=== PATIENT | male | born 1940 | race Caucasian/White ===

== ENCOUNTER 2016-05-19 12:45 | Inpatient (IN) | payer MEDICARE, OTHER ==
[~2016-05-19] VITALS: Ht 175.3 cm; Wt 102.4 kg
[2016-05-19] VITALS (28 sets, daily range): BP systolic 84–149; BP diastolic 34–75
[~2016-05-19 12:45] MED LIST: ARTISOL OP; ASCO-22 PO; BIS10RS PR; DOCU-137 PO; INSUINJ IJ; LIDO5DIS21 TOP; MID10T GT; WARF2TAB55 PO
[2016-05-19] MEDS ORDERED: NOREPINEPHRINE BITARTRATE 250 ML IV ONE (13:15)
[2016-05-19] MEDS ORDERED: PIPERACILLIN-TAZOB 3.375GM 100 ML IV ONE (13:15)
[2016-05-19 13:18] LABS: Basophils # (auto) 0.1 uL; Basophils % (auto) 0.4 % (0.0-2.0); DEFINITIVE VIEW TRANSMISSION; Eosinophils # (auto) 0.3 uL; Eosinophils % (auto) 1.6 % (0.0-7.0); Hematocrit 28.5 % (41.0-53.0); Hemoglobin 9.2 g/dL (13.5-17.5); Lymphocytes # (auto) 2.4 uL; Lymphocytes % (auto) 12.9 % (10.0-50.0); Mean Corpuscular Hemoglobin 30.4 pg (28.0-32.0); Mean Corpuscular Hgb Conc. 32.4 g/dL (32.0-36.0); Mean Corpuscular Volume 93.9 fL (80.0-100.0); Mean Platelet Volume 7.4 fL (7.4-10.4); Monocytes # (auto) 2.9 uL; Monocytes % (auto) 16.1 % (0.0-12.0); Neutrophils # (auto) 12.6 uL; Platelet Count (auto) 595 10^3/uL (140-450); Red Cell Distribution Width 15.1 % (11.6-16.0); White Blood Cell 18.3 10^3/uL (4.4-10.8)
[2016-05-19] MEDS: NOREPINEPHRINE BITARTRATE 250 ML IV SCH (13:34)
[2016-05-19 13:35] LABS: Albumin 2.3 g/dL (3.4-5.0); BUN/Creatinine Ratio 13.2; Calcium 7.4 mg/dL (8.5-10.1); Potassium 5.2 mmol/L (3.5-5.1)
[2016-05-19 13:40] LABS: Bilirubin, Total 0.3 mg/dL (0.2-1.0); Total Protein 6.3 g/dL (6.4-8.2)
[2016-05-19 13:42] LABS: INR 1.07 (0.9-1.15)
[2016-05-19] MEDS: PROPOFOL 100 ML IV SCH (14:34)
[2016-05-19] MEDS ORDERED: PROPOFOL 10 MG/ML 20 ML IV ONE (14:45)
[2016-05-19 15:06] LABS: Urine Mucus FEW (None Seen); Urine RBC 6 /hpf (0 - 3); Urine Squamous Epithelial Cell FEW /hpf (<5)
[2016-05-19 15:07] LABS: Urine Color Yellow (Yellow)
[2016-05-19 15:08] LABS: Urine Bilirubin Negative (Negative); Urine Blood 50 /uL (Negative); Urine Glucose Normal (Normal); Urine Ketone Negative (Negative); Urine Nitrite Negative (Negative); Urine Urobilinogen Normal (Negative)
[2016-05-19] MEDS ORDERED: GABA300C8 PO (15:16)
[2016-05-19] MEDS ORDERED: AMIO200T33 PO (15:16)
[2016-05-19] MEDS ORDERED: NOR5T PO (15:16)
[2016-05-19] MEDS ORDERED: FURO40TA PO (15:16)
[2016-05-19] MEDS ORDERED: VANC125C2 PO (15:16)
[2016-05-19] MEDS ORDERED: TIOT17SP IN (15:16)
[2016-05-19] MEDS ORDERED: DIPH25CA6 PO (15:16)
[2016-05-19] MEDS ORDERED: ACET325T82 PO (15:16)
[2016-05-19] MEDS ORDERED: IPRATROPIUM BROM 0.5 MG/2.5ML INH SOL ONE (15:24)
[2016-05-19 16:09] LABS: B-Type Natriuretic Peptide 1428.55 pg/mL (0-100); Temperature: 22.9 C (20.0-25.0)
[2016-05-19] MEDS ORDERED: NITROGLYCERIN 0.4 MG SL TAB SL PRN (16:30)
[2016-05-19] MEDS ORDERED: MORPHINE SULF INJ 2 MG/ML SYRINGE 1ML IV PRN (16:30)
[2016-05-19] MEDS ORDERED: TPN PER PHARMACY 0 ML IV SCH (17:15)
[2016-05-19] MEDS ORDERED: DEXTROSE (50%) 50ML SYRG IV PRN (17:15)
[2016-05-19] MEDS: ACCU-CHEK COMFORT CURVE STRIP VI SCH ×2 (18:00→23:40)
[2016-05-19] MEDS: InsuLIN REG 1unit/0.01ml Soln (100units/ml) SC SCH ×2 (19:11→23:40)
[2016-05-19] MEDS ORDERED: CLINIMIX PER PHARMACY IV ONE ×5 (20:00)
[2016-05-20] VITALS (92 sets, daily range): BP systolic 75–168; BP diastolic 32–99
[2016-05-20] MEDS: InsuLIN REG 1unit/0.01ml Soln (100units/ml) SC SCH ×3 (06:00→18:00)
[2016-05-20] MEDS: ACCU-CHEK COMFORT CURVE STRIP VI SCH ×3 (06:00→18:15)
[2016-05-20] MEDS: PROPOFOL 100 ML IV SCH ×2 (07:00)
[2016-05-20 08:06] LABS: Albumin 2.1 g/dL (3.4-5.0); Bilirubin, Total 0.3 mg/dL (0.2-1.0); Magnesium 2.2 mg/dL (1.6-2.6); Phosphorus 3.3 mg/dL (2.5-4.90); Total Protein 5.6 g/dL (6.4-8.2)
[2016-05-20] MEDS ORDERED: EPOETIN ALFA 4,000 UNIT/ML VL SC ONE (12:15)
[2016-05-20] MEDS ORDERED: VANCOMYCIN PER PHARMACY 0 MG IV SCH (12:15)
[2016-05-20] MEDS: VANCOMYCIN 1GM/250ML D5W 250 ML IV SCH (13:51)
[2016-05-20] MEDS ORDERED: PIPERACILLIN-TAZOB 3.375GM 100 ML IV SCH (18:00)
[2016-05-20] MEDS: VANCOMYCIN HCL 125MG/5ML ORAL SOL PO SCH ×2 (18:00→22:00)
[2016-05-20] MEDS ORDERED: CLINIMIX PER PHARMACY IV NR ×7 (20:00)
[2016-05-20] MEDS ORDERED: KETOROLAC TROMETH 30 MG/ML 1ML VIAL IV ONE (20:15)
[2016-05-20 21:03] LABS: Basophils # (auto) 0 uL; Basophils % (auto) 0.1 % (0.0-2.0); DEFINITIVE VIEW TRANSMISSION; Eosinophils # (auto) 0.3 uL; Eosinophils % (auto) 1.8 % (0.0-7.0); Hematocrit 27.1 % (41.0-53.0); Hemoglobin 8.8 g/dL (13.5-17.5); Lymphocytes % (auto) 5.8 % (10.0-50.0); Mean Corpuscular Hemoglobin 29.4 pg (28.0-32.0); Mean Corpuscular Hgb Conc. 32.3 g/dL (32.0-36.0); Mean Corpuscular Volume 90.9 fL (80.0-100.0); Monocytes % (auto) 12.2 % (0.0-12.0); Neutrophils # (auto) 13.3 uL; Neutrophils % (auto) 80.1 % (37.0-80.0); Platelet Count (auto) 417 10^3/uL (140-450); Red Cell Distribution Width 14.3 % (11.6-16.0); White Blood Cell 16.7 10^3/uL (4.4-10.8)
[2016-05-20] MEDS: AMIODARONE HCL 200 MG TAB PO SCH (22:00)
[2016-05-20] MEDS: ENOXAPARIN SOD 60 MG/0.6 ML SYRINGE SC SCH (22:00)
[2016-05-20 22:03] LABS: B-Type Natriuretic Peptide 1349.22 pg/mL (0-100); Temperature: 22.9 C (20.0-25.0)
[2016-05-20] MEDS: IPRATROPIUM BROM 0.5 MG/2.5ML INH SOL NEB SCH (22:45)
[2016-05-21] VITALS (38 sets, daily range): BP systolic 92–139; BP diastolic 36–79
[2016-05-21] MEDS: NOREPINEPHRINE BITARTRATE 250 ML IV SCH (01:07)
[2016-05-21 04:09] LABS: Basophils # (auto) 0 uL; DEFINITIVE VIEW TRANSMISSION; Eosinophils # (auto) 0.3 uL; Eosinophils % (auto) 2.3 % (0.0-7.0); Hematocrit 24.5 % (41.0-53.0); Hemoglobin 8.1 g/dL (13.5-17.5); Lymphocytes # (auto) 1.2 uL; Mean Corpuscular Hemoglobin 30.9 pg (28.0-32.0); Mean Corpuscular Hgb Conc. 33.1 g/dL (32.0-36.0); Mean Corpuscular Volume 93.2 fL (80.0-100.0); Mean Platelet Volume 7.3 fL (7.4-10.4); Monocytes % (auto) 13.3 % (0.0-12.0); Neutrophils # (auto) 11.3 uL; Neutrophils % (auto) 76.4 % (37.0-80.0); Platelet Count (auto) 388 10^3/uL (140-450); Red Cell Distribution Width 14.5 % (11.6-16.0); White Blood Cell 14.8 10^3/uL (4.4-10.8)
[2016-05-21 04:37] LABS: Albumin 2.1 g/dL (3.4-5.0); BUN/Creatinine Ratio 15.9; Bilirubin, Total 0.4 mg/dL (0.2-1.0); Calcium 7.9 mg/dL (8.5-10.1); Phosphorus 3.1 mg/dL (2.5-4.90); Total Protein 5.7 g/dL (6.4-8.2)
[2016-05-21] MEDS: VANCOMYCIN HCL 125MG/5ML ORAL SOL PO SCH ×4 (06:00→22:08)
[2016-05-21] MEDS: InsuLIN REG 1unit/0.01ml Soln (100units/ml) SC SCH ×4 (06:00→17:45)
[2016-05-21] MEDS: ACCU-CHEK COMFORT CURVE STRIP VI SCH ×4 (06:00→17:19)
[2016-05-21] MEDS: IPRATROPIUM BROM 0.5 MG/2.5ML INH SOL NEB SCH ×3 (07:19→22:35)
[2016-05-21] MEDS: AMIODARONE HCL 200 MG TAB PO SCH ×2 (12:26→22:08)
[2016-05-21] MEDS: VANCOMYCIN 1GM/250ML D5W 250 ML IV SCH (12:49)
[2016-05-21] MEDS ORDERED: CLINIMIX PER PHARMACY IV NR ×7 (20:00)
[2016-05-21] MEDS: ENOXAPARIN SOD 60 MG/0.6 ML SYRINGE SC SCH (22:07)
[2016-05-22] MEDS: InsuLIN REG 1unit/0.01ml Soln (100units/ml) SC SCH ×4 (00:19→18:00)
[2016-05-22] MEDS: ACCU-CHEK COMFORT CURVE STRIP VI SCH ×4 (00:20→18:54)
[2016-05-22] MEDS: traMADol HCL 50 MG TAB PO PRN ×2 (00:37→06:31)
[2016-05-22 01:20] VITALS: BP 127/54
[2016-05-22 01:29] VITALS: BP 127/54
[2016-05-22] MEDS: IPRATROPIUM BROM 0.5 MG/2.5ML INH SOL NEB SCH ×3 (05:44→22:35)
[2016-05-22 06:00] VITALS: BP 124/48
[2016-05-22] MEDS: VANCOMYCIN HCL 125MG/5ML ORAL SOL PO SCH ×4 (06:18→22:29)
[2016-05-22 06:39] LABS: Calcium 7.2 mg/dL (8.5-10.1); Potassium 4.2 mmol/L (3.5-5.1)
[2016-05-22 06:42] LABS: Bilirubin, Total 0.5 mg/dL (0.2-1.0); Total Protein 5.8 g/dL (6.4-8.2)
[2016-05-22 09:00] VITALS: BP 107/41
[2016-05-22 09:39] LABS: Phosphorus 1.6 mg/dL (2.5-4.90)
[2016-05-22] MEDS: AMIODARONE HCL 200 MG TAB PO SCH ×2 (10:00→22:29)
[2016-05-22] MEDS ORDERED: SODIUM PHOSPH 40 MEQ (30MMOL) IN NS 250 ML IV ONE (11:00)
[2016-05-22 13:00] VITALS: BP 128/46
[2016-05-22] MEDS: VANCOMYCIN 1GM/250ML D5W 250 ML IV SCH (14:00)
[2016-05-22] MEDS ORDERED: diphenhdrAMINE HCL 25 MG CAP PO PRN (14:30)
[2016-05-22] MEDS ORDERED: CALAMINE TOPical LOTION180 ML TOP PRN (14:30)
[2016-05-22] MEDS ORDERED: FUROSEMIDE 40 MG/4 ML VIAL IV ONE (14:30)
[2016-05-22] MEDS ORDERED: CLINIMIX PER PHARMACY IV NR ×9 (20:00)
[2016-05-22 21:55] VITALS: BP 107/47
[2016-05-22] MEDS: ENOXAPARIN SOD 60 MG/0.6 ML SYRINGE SC SCH (22:29)
[2016-05-22] MEDS: ACETAMINOPHEN 325 MG TAB PO PRN (22:38)
[2016-05-23] MEDS: ACCU-CHEK COMFORT CURVE STRIP VI SCH ×4 (00:11→17:10)
[2016-05-23] MEDS: InsuLIN REG 1unit/0.01ml Soln (100units/ml) SC SCH ×5 (00:11→23:49)
[2016-05-23 05:06] VITALS: BP 110/55
[2016-05-23] MEDS: VANCOMYCIN HCL 125MG/5ML ORAL SOL PO SCH ×4 (05:57→21:58)
[2016-05-23] MEDS: IPRATROPIUM BROM 0.5 MG/2.5ML INH SOL NEB SCH ×3 (06:05→21:55)
[2016-05-23 09:00] VITALS: BP 91/26
[2016-05-23] MEDS: DOCUSATE SOD 100 MG CAP PO SCH ×2 (10:23→21:59)
[2016-05-23] MEDS: AMIODARONE HCL 200 MG TAB PO SCH ×2 (10:24→21:59)
[2016-05-23] MEDS: VANCOMYCIN 1GM/250ML D5W 250 ML IV SCH (12:30)
[2016-05-23 13:00] VITALS: BP 106/48
[2016-05-23 17:00] VITALS: BP 94/49
[2016-05-23] MEDS: traMADol HCL 50 MG TAB PO PRN (21:58)
[2016-05-23] MEDS: ENOXAPARIN SOD 60 MG/0.6 ML SYRINGE SC SCH (21:59)
[2016-05-23 22:00] VITALS: BP 113/48
[2016-05-24] MEDS: ACCU-CHEK COMFORT CURVE STRIP VI SCH ×5 (00:06→22:07)
[2016-05-24 05:00] VITALS: BP 97/50
[2016-05-24] MEDS: InsuLIN REG 1unit/0.01ml Soln (100units/ml) SC SCH ×4 (06:00→22:07)
[2016-05-24 06:14] LABS: Basophils # (auto) 0 uL; Basophils % (auto) 0.3 % (0.0-2.0); DEFINITIVE VIEW TRANSMISSION; Eosinophils # (auto) 0.4 uL; Eosinophils % (auto) 3.3 % (0.0-7.0); Hematocrit 22.7 % (41.0-53.0); Hemoglobin 7.6 g/dL (13.5-17.5); Lymphocytes # (auto) 0.9 uL; Lymphocytes % (auto) 8.2 % (10.0-50.0); Mean Corpuscular Hemoglobin 31.3 pg (28.0-32.0); Mean Corpuscular Hgb Conc. 33.3 g/dL (32.0-36.0); Mean Corpuscular Volume 93.8 fL (80.0-100.0); Mean Platelet Volume 7.9 fL (7.4-10.4); Monocytes # (auto) 1.9 uL; Monocytes % (auto) 16.9 % (0.0-12.0); Neutrophils # (auto) 7.9 uL; Neutrophils % (auto) 71.3 % (37.0-80.0); Platelet Count (auto) 251 10^3/uL (140-450); Red Cell Distribution Width 14.8 % (11.6-16.0); SUSPECT VIEW TRANSMISSION; White Blood Cell 11.1 10^3/uL (4.4-10.8)
[2016-05-24 06:59] LABS: Albumin 1.9 g/dL (3.4-5.0); BUN/Creatinine Ratio 16.8; Bilirubin, Total 0.3 mg/dL (0.2-1.0); Calcium 7.1 mg/dL (8.5-10.1); Potassium 4.6 mmol/L (3.5-5.1); Total Protein 5.6 g/dL (6.4-8.2)
[2016-05-24] MEDS: VANCOMYCIN HCL 125MG/5ML ORAL SOL PO SCH ×4 (07:06→22:07)
[2016-05-24] MEDS: IPRATROPIUM BROM 0.5 MG/2.5ML INH SOL NEB SCH ×3 (07:15→22:20)
[2016-05-24 09:00] VITALS: BP 118/51
[2016-05-24] MEDS: DOCUSATE SOD 100 MG CAP PO SCH ×2 (10:38→22:07)
[2016-05-24] MEDS: AMIODARONE HCL 200 MG TAB PO SCH ×2 (10:38→22:07)
[2016-05-24] MEDS: traMADol HCL 50 MG TAB PO PRN ×2 (12:02→20:33)
[2016-05-24 13:00] VITALS: BP 117/62
[2016-05-24] MEDS ORDERED: EPOETIN ALFA 4,000 UNIT/ML VL SC ONE (13:15)
[2016-05-24] MEDS ORDERED: TESTOSTERONE CYPIONATE 200 MG/ML 1ML VIAL IM ONE (13:15)
[2016-05-24] MEDS: BOOST PLUS 8 ounce PO SCH ×2 (16:12→18:38)
[2016-05-24 17:00] VITALS: BP 120/48
[2016-05-24 20:00] VITALS: BP 126/49
[2016-05-24] MEDS: MUPIROCIN 2% OINT 22GM EACHNOSTRI SCH (22:07)
[2016-05-24] MEDS: ENOXAPARIN SOD 60 MG/0.6 ML SYRINGE SC SCH (22:07)
[2016-05-25] VITALS (18 sets, daily range): BP systolic 69–142; BP diastolic 26–100
[2016-05-25] MEDS: ACCU-CHEK COMFORT CURVE STRIP VI SCH ×3 (05:02→18:00)
[2016-05-25] MEDS: InsuLIN REG 1unit/0.01ml Soln (100units/ml) SC SCH ×3 (05:02→18:00)
[2016-05-25] MEDS: VANCOMYCIN HCL 125MG/5ML ORAL SOL PO SCH ×2 (05:23→12:50)
[2016-05-25] MEDS: IPRATROPIUM BROM 0.5 MG/2.5ML INH SOL NEB SCH ×2 (05:44→22:45)
[2016-05-25] MEDS: ACETAMINOPHEN 325 MG TAB PO PRN (06:13)
[2016-05-25 06:45] LABS: DEFINITIVE VIEW TRANSMISSION; Hematocrit 24.4 % (41.0-53.0); Hemoglobin 8.1 g/dL (13.5-17.5); Mean Corpuscular Hemoglobin 31.1 pg (28.0-32.0); Mean Corpuscular Hgb Conc. 33.2 g/dL (32.0-36.0); Mean Corpuscular Volume 93.9 fL (80.0-100.0); Mean Platelet Volume 7.9 fL (7.4-10.4); Platelet Count (auto) 309 10^3/uL (140-450); Red Cell Distribution Width 14.8 % (11.6-16.0); SUSPECT VIEW TRANSMISSION; White Blood Cell 26.2 10^3/uL (4.4-10.8)
[2016-05-25 07:00] LABS: Albumin 1.9 g/dL (3.4-5.0); BUN/Creatinine Ratio 15.8; Calcium 6.5 mg/dL (8.5-10.1); Potassium 4.8 mmol/L (3.5-5.1)
[2016-05-25 07:12] LABS: Bilirubin, Total 0.3 mg/dL (0.2-1.0); Total Protein 5.3 g/dL (6.4-8.2)
[2016-05-25 07:19] LABS: Metamyelocytes % 0; Myelocytes % 0; Promyelocytes % 0; Reactive Lymphocytes 0
[2016-05-25] MEDS: BOOST PLUS 8 ounce PO SCH ×3 (08:00→18:00)
[2016-05-25] MEDS: AMIODARONE HCL 200 MG TAB PO SCH ×2 (09:39→23:10)
[2016-05-25] MEDS: DOCUSATE SOD 100 MG CAP PO SCH ×2 (09:39→23:10)
[2016-05-25] MEDS: MUPIROCIN 2% OINT 22GM EACHNOSTRI SCH ×2 (09:39→22:00)
[2016-05-25] MEDS ORDERED: VANCOMYCIN 1GM/250ML D5W 250 ML IV SCH (10:00)
[2016-05-25 13:25] LABS: Platelet Estimate Adequate
[2016-05-25 13:26] LABS: Burr Cells FEW
[2016-05-25] MEDS: VANCOMYCIN HCL 125MG/5ML ORAL SOL GT SCH (18:21)
[2016-05-25] MEDS ORDERED: VANCOMYCIN 1GM/250ML D5W 250 ML IV ONE (20:45)
[2016-05-25] MEDS: AZTREONAM 1GM INJ 1 GM in D5W 5% 50 ML IV SCH (21:57)
[2016-05-25] MEDS ORDERED: PIPERACILLIN-TAZO 4.5GM 100 ML IV SCH (22:00)
[2016-05-25] MEDS: ENOXAPARIN SOD 60 MG/0.6 ML SYRINGE SC SCH (23:10)
[2016-05-26] VITALS (7 sets, daily range): BP systolic 88–125; BP diastolic 50–85
[2016-05-26] MEDS: ACCU-CHEK COMFORT CURVE STRIP VI SCH ×4 (06:00→17:43)
[2016-05-26] MEDS: InsuLIN REG 1unit/0.01ml Soln (100units/ml) SC SCH ×4 (06:00→17:44)
[2016-05-26 06:03] LABS: BUN/Creatinine Ratio 15.7; Calcium 7.3 mg/dL (8.5-10.1)
[2016-05-26] MEDS: VANCOMYCIN HCL 125MG/5ML ORAL SOL GT SCH ×4 (06:40→17:47)
[2016-05-26] MEDS: IPRATROPIUM BROM 0.5 MG/2.5ML INH SOL NEB SCH ×3 (07:02→21:47)
[2016-05-26] MEDS: BOOST PLUS 8 ounce PO SCH ×3 (10:27→17:47)
[2016-05-26] MEDS: MUPIROCIN 2% OINT 22GM EACHNOSTRI SCH ×2 (10:27→21:47)
[2016-05-26] MEDS: AZTREONAM 1GM INJ 1 GM in D5W 5% 50 ML IV SCH ×2 (10:27→21:58)
[2016-05-26] MEDS: AMIODARONE HCL 200 MG TAB PO SCH ×2 (10:27→21:47)
[2016-05-26] MEDS: DOCUSATE SOD 100 MG CAP PO SCH ×2 (10:27→21:47)
[2016-05-26] MEDS ORDERED: VANCOMYCIN 1GM/250ML D5W 250 ML IV ONE (13:00)
[2016-05-26 13:45] LABS: Urine Bilirubin Negative (Negative); Urine Glucose Normal (Normal); Urine Ketone Negative (Negative); Urine Nitrite Negative (Negative); Urine RBC 380 /hpf (0 - 3); Urine Squamous Epithelial Cell MOD /hpf (<5); Urine Urobilinogen Normal (Negative)
[2016-05-26 13:46] LABS: Urine Blood 3+ /uL (Negative)
[2016-05-26 13:47] LABS: Urine Color Yellow (Yellow)
[2016-05-26 13:56] LABS: Hematocrit 27.4 % (41.0-53.0); Hemoglobin 8.9 g/dL (13.5-17.5); Mean Corpuscular Hemoglobin 29.5 pg (28.0-32.0); Mean Corpuscular Hgb Conc. 32.5 g/dL (32.0-36.0); Mean Corpuscular Volume 90.6 fL (80.0-100.0); Mean Platelet Volume 8.6 fL (7.4-10.4); Platelet Count (auto) 211 10^3/uL (140-450); SUSPECT VIEW TRANSMISSION; White Blood Cell 17.4 10^3/uL (4.4-10.8)
[2016-05-26 14:01] LABS: Metamyelocytes % 0; Myelocytes % 0; Promyelocytes % 0; Reactive Lymphocytes 0
[2016-05-26 14:19] LABS: Albumin 1.9 g/dL (3.4-5.0); BUN/Creatinine Ratio 14.1; Potassium 4.7 mmol/L (3.5-5.1)
[2016-05-26 14:21] LABS: Bilirubin, Total 0.4 mg/dL (0.2-1.0); Total Protein 5.5 g/dL (6.4-8.2)
[2016-05-26 17:38] LABS: Platelet Estimate Adequate
[2016-05-26] MEDS: ENOXAPARIN SOD 60 MG/0.6 ML SYRINGE SC SCH (21:47)
[2016-05-26] MEDS: traMADol HCL 50 MG TAB PO PRN (21:47)
[2016-05-27] MEDS: VANCOMYCIN HCL 125MG/5ML ORAL SOL GT SCH ×4 (00:23→17:46)
[2016-05-27] MEDS: ACCU-CHEK COMFORT CURVE STRIP VI SCH ×4 (00:27→17:46)
[2016-05-27 04:50] VITALS: BP 114/51
[2016-05-27] MEDS: InsuLIN REG 1unit/0.01ml Soln (100units/ml) SC SCH ×4 (06:20→17:46)
[2016-05-27 06:21] LABS: BUN/Creatinine Ratio 17.3; Calcium 7.3 mg/dL (8.5-10.1); Potassium 4.3 mmol/L (3.5-5.1)
[2016-05-27] MEDS: IPRATROPIUM BROM 0.5 MG/2.5ML INH SOL NEB SCH ×3 (06:54→22:06)
[2016-05-27 08:00] VITALS: BP 113/53
[2016-05-27] MEDS: BOOST PLUS 8 ounce PO SCH ×3 (08:33→17:46)
[2016-05-27 09:00] VITALS: BP 113/53
[2016-05-27] MEDS: DOCUSATE SOD 100 MG CAP PO SCH ×2 (09:37→22:15)
[2016-05-27] MEDS: AZTREONAM 1GM INJ 1 GM in D5W 5% 50 ML IV SCH ×2 (09:37→22:36)
[2016-05-27] MEDS: MUPIROCIN 2% OINT 22GM EACHNOSTRI SCH ×2 (09:37→22:36)
[2016-05-27] MEDS: AMIODARONE HCL 200 MG TAB PO SCH ×2 (09:37→22:15)
[2016-05-27] MEDS ORDERED: TPN PER PHARMACY 0 ML IV SCH (11:00)
[2016-05-27] MEDS ORDERED: EPOETIN ALFA 4,000 UNIT/ML VL SC ONE (11:00)
[2016-05-27] MEDS ORDERED: TESTOSTERONE CYPIONATE 200 MG/ML 1ML VIAL IM ONE ×2 (11:00→12:15)
[2016-05-27] MEDS: SODIUM CHLORIDE 0.9% 1,000 ML IV SCH ×3 (12:03→20:00)
[2016-05-27] MEDS: traMADol HCL 50 MG TAB PO PRN (12:03)
[2016-05-27 12:08] LABS: Magnesium 2.2 mg/dL (1.6-2.6); Phosphorus 4.2 mg/dL (2.5-4.90)
[2016-05-27 12:51] VITALS: BP 121/38
[2016-05-27 16:45] VITALS: BP 102/53
[2016-05-27] MEDS ORDERED: DEXTROSE (50%) 50ML SYRG IV SCH (18:00)
[2016-05-27] MEDS: AMINO ACID INFUSION IN D10W 1,000 ML IV NR (20:22)
[2016-05-27 22:00] VITALS: BP 96/53
[2016-05-27] MEDS: ENOXAPARIN SOD 60 MG/0.6 ML SYRINGE SC SCH (22:37)
[2016-05-28] VITALS (9 sets, daily range): BP systolic 98–143; BP diastolic 39–114
[2016-05-28] MEDS: VANCOMYCIN HCL 125MG/5ML ORAL SOL GT SCH ×4 (00:12→18:00)
[2016-05-28] MEDS: ACCU-CHEK COMFORT CURVE STRIP VI SCH ×4 (00:12→18:37)
[2016-05-28] MEDS: SODIUM CHLORIDE 0.9% 1,000 ML IV SCH ×2 (05:16→13:30)
[2016-05-28 05:53] LABS: Albumin 1.8 g/dL (3.4-5.0); BUN/Creatinine Ratio 18.8; Bilirubin, Total 0.3 mg/dL (0.2-1.0); Calcium 7.5 mg/dL (8.5-10.1); Magnesium 2.1 mg/dL (1.6-2.6); Phosphorus 3.9 mg/dL (2.5-4.90); Potassium 4.3 mmol/L (3.5-5.1); Total Protein 5.5 g/dL (6.4-8.2)
[2016-05-28] MEDS: IPRATROPIUM BROM 0.5 MG/2.5ML INH SOL NEB SCH ×3 (05:59→22:00)
[2016-05-28] MEDS: InsuLIN REG 1unit/0.01ml Soln (100units/ml) SC SCH ×4 (06:00→18:00)
[2016-05-28] MEDS: BOOST PLUS 8 ounce PO SCH ×3 (08:50→18:36)
[2016-05-28] MEDS: DOCUSATE SOD 100 MG CAP PO SCH ×2 (09:46→21:23)
[2016-05-28] MEDS: AMIODARONE HCL 200 MG TAB PO SCH ×2 (09:46→23:44)
[2016-05-28] MEDS: FLUCONAZOLE 200MG/100ML 100 ML IV SCH (09:48)
[2016-05-28] MEDS: MUPIROCIN 2% OINT 22GM EACHNOSTRI SCH ×2 (09:50→21:25)
[2016-05-28] MEDS ORDERED: VANCOMYCIN 1GM/250ML D5W 250 ML IV SCH (10:00)
[2016-05-28] MEDS: AZTREONAM 1GM INJ 1 GM in D5W 5% 50 ML IV SCH ×2 (10:00→23:51)
[2016-05-28 11:29] LABS: Basophils # (auto) 0 uL; Basophils % (auto) 0.1 % (0.0-2.0); Eosinophils # (auto) 0.2 uL; Eosinophils % (auto) 2.1 % (0.0-7.0); Hematocrit 28.3 % (41.0-53.0); Hemoglobin 9.3 g/dL (13.5-17.5); Lymphocytes # (auto) 0.8 uL; Lymphocytes % (auto) 6.7 % (10.0-50.0); Mean Corpuscular Hemoglobin 29.6 pg (28.0-32.0); Mean Corpuscular Hgb Conc. 32.8 g/dL (32.0-36.0); Mean Corpuscular Volume 90.4 fL (80.0-100.0); Mean Platelet Volume 8.9 fL (7.4-10.4); Monocytes # (auto) 1.4 uL; Monocytes % (auto) 12.2 % (0.0-12.0); Neutrophils # (auto) 8.8 uL; Neutrophils % (auto) 78.9 % (37.0-80.0); Platelet Count (auto) 230 10^3/uL (140-450); Red Cell Distribution Width 14.8 % (11.6-16.0); White Blood Cell 11.2 10^3/uL (4.4-10.8)
[2016-05-28] MEDS: AMINO ACID INFUSION IN D10W 1,000 ML IV NR (19:49)
[2016-05-28] MEDS ORDERED: TPN PER PHARMACY IV NR ×10 (20:00)
[2016-05-28] MEDS: ENOXAPARIN SOD 60 MG/0.6 ML SYRINGE SC SCH (21:23)
[2016-05-29] MEDS: SODIUM CHLORIDE 0.9% 1,000 ML IV SCH ×3 (00:44→17:35)
[2016-05-29] MEDS: InsuLIN REG 1unit/0.01ml Soln (100units/ml) SC SCH ×4 (01:40→17:38)
[2016-05-29 05:00] VITALS: BP 135/49
[2016-05-29] MEDS: VANCOMYCIN HCL 125MG/5ML ORAL SOL GT SCH ×4 (06:00→17:34)
[2016-05-29] MEDS: ACCU-CHEK COMFORT CURVE STRIP VI SCH ×4 (06:10→17:35)
[2016-05-29] MEDS: IPRATROPIUM BROM 0.5 MG/2.5ML INH SOL NEB SCH ×3 (06:32→21:21)
[2016-05-29 06:42] LABS: Albumin 1.8 g/dL (3.4-5.0); BUN/Creatinine Ratio 19.6; Bilirubin, Total 0.3 mg/dL (0.2-1.0); Calcium 7.5 mg/dL (8.5-10.1); Phosphorus 2.7 mg/dL (2.5-4.90); Potassium 4.1 mmol/L (3.5-5.1); Total Protein 5.4 g/dL (6.4-8.2)
[2016-05-29] MEDS: BOOST PLUS 8 ounce PO SCH ×3 (08:00→17:35)
[2016-05-29 09:00] VITALS: BP 142/69
[2016-05-29] MEDS: MUPIROCIN 2% OINT 22GM EACHNOSTRI SCH (12:06)
[2016-05-29] MEDS: DOCUSATE SOD 100 MG CAP PO SCH ×2 (12:06→21:42)
[2016-05-29] MEDS: FLUCONAZOLE 200MG/100ML 100 ML IV SCH (12:06)
[2016-05-29] MEDS: AMIODARONE HCL 200 MG TAB PO SCH ×2 (12:07→21:42)
[2016-05-29] MEDS: AZTREONAM 1GM INJ 1 GM in D5W 5% 50 ML IV SCH ×2 (12:35→22:23)
[2016-05-29 13:00] VITALS: BP 150/53
[2016-05-29 17:00] VITALS: BP 128/54
[2016-05-29] MEDS ORDERED: TPN PER PHARMACY IV NR ×10 (20:00)
[2016-05-29 20:30] VITALS: BP 126/58
[2016-05-29 21:30] VITALS: BP 126/58
[2016-05-29] MEDS: traMADol HCL 50 MG TAB PO PRN (21:42)
[2016-05-29] MEDS: ENOXAPARIN SOD 60 MG/0.6 ML SYRINGE SC SCH (21:42)
[2016-05-30] VITALS (8 sets, daily range): BP systolic 78–142; BP diastolic 33–62
[2016-05-30] MEDS: VANCOMYCIN HCL 125MG/5ML ORAL SOL GT SCH ×4 (00:19→17:36)
[2016-05-30] MEDS: ACCU-CHEK COMFORT CURVE STRIP VI SCH ×4 (00:19→17:36)
[2016-05-30 05:48] LABS: Potassium 4.3 mmol/L (3.5-5.1)
[2016-05-30 05:51] LABS: Albumin 1.7 g/dL (3.4-5.0); BUN/Creatinine Ratio 19.1; Calcium 7.2 mg/dL (8.5-10.1); Magnesium 1.9 mg/dL (1.6-2.6)
[2016-05-30 05:54] LABS: Bilirubin, Total 0.3 mg/dL (0.2-1.0); Total Protein 5.4 g/dL (6.4-8.2)
[2016-05-30] MEDS: SODIUM CHLORIDE 0.9% 1,000 ML IV SCH ×3 (06:11→23:13)
[2016-05-30] MEDS: InsuLIN REG 1unit/0.01ml Soln (100units/ml) SC SCH ×4 (06:11→18:14)
[2016-05-30] MEDS: IPRATROPIUM BROM 0.5 MG/2.5ML INH SOL NEB SCH ×3 (06:17→22:00)
[2016-05-30] MEDS: BOOST PLUS 8 ounce PO SCH ×3 (08:00→17:36)
[2016-05-30] MEDS ORDERED: EPOETIN ALFA 4,000 UNIT/ML VL IV ONE (09:15)
[2016-05-30] MEDS ORDERED: TESTOSTERONE CYPIONATE 200 MG/ML 1ML VIAL IM ONE (09:15)
[2016-05-30 10:27] LABS: Basophils # (auto) 0 uL; Basophils % (auto) 0.2 % (0.0-2.0); DEFINITIVE VIEW TRANSMISSION; Eosinophils # (auto) 0.3 uL; Hemoglobin 10.5 g/dL (13.5-17.5); Lymphocytes % (auto) 6.7 % (10.0-50.0); Mean Corpuscular Hemoglobin 29.4 pg (28.0-32.0); Mean Corpuscular Hgb Conc. 32.7 g/dL (32.0-36.0); Mean Platelet Volume 7.9 fL (7.4-10.4); Monocytes % (auto) 12.8 % (0.0-12.0); Neutrophils % (auto) 78.3 % (37.0-80.0); Platelet Count (auto) 343 10^3/uL (140-450); Red Cell Distribution Width 14.8 % (11.6-16.0); White Blood Cell 15.4 10^3/uL (4.4-10.8)
[2016-05-30] MEDS: FLUCONAZOLE 200MG/100ML 100 ML IV SCH (11:52)
[2016-05-30] MEDS: AMIODARONE HCL 200 MG TAB PO SCH ×2 (11:54→22:00)
[2016-05-30] MEDS: DOCUSATE SOD 100 MG CAP PO SCH ×2 (11:54→22:00)
[2016-05-30] MEDS: AZTREONAM 1GM INJ 1 GM in D5W 5% 50 ML IV SCH ×2 (12:40→21:41)
[2016-05-30] MEDS ORDERED: FUROSEMIDE 40 MG/4 ML VIAL ONE (17:04)
[2016-05-30] MEDS ORDERED: FUROSEMIDE 40 MG/4 ML VIAL IV ONE (17:15)
[2016-05-30] MEDS ORDERED: ACETAMINOPHEN 325 MG TAB PO PRN ×2 (18:59→19:00)
[2016-05-30] MEDS ORDERED: TPN PER PHARMACY IV NR ×10 (20:00)
[2016-05-30] MEDS ORDERED: ALPRAZolam 0.5 MG TAB PO PRN (20:15)
[2016-05-30] MEDS: ENOXAPARIN SOD 60 MG/0.6 ML SYRINGE SC SCH (22:57)
[2016-05-31] MEDS: InsuLIN REG 1unit/0.01ml Soln (100units/ml) SC SCH ×4 (00:40→18:00)
[2016-05-31] MEDS: ACCU-CHEK COMFORT CURVE STRIP VI SCH ×4 (00:40→18:27)
[2016-05-31 05:00] VITALS: BP 77/44
[2016-05-31] MEDS: VANCOMYCIN HCL 125MG/5ML ORAL SOL GT SCH ×4 (05:56→18:00)
[2016-05-31 06:54] LABS: Albumin 1.9 g/dL (3.4-5.0); BUN/Creatinine Ratio 19.3; Bilirubin, Total 0.2 mg/dL (0.2-1.0); Calcium 7.3 mg/dL (8.5-10.1); Magnesium 2.2 mg/dL (1.6-2.6); Phosphorus 6.1 mg/dL (2.5-4.90); Potassium 5.4 mmol/L (3.5-5.1); Total Protein 6.1 g/dL (6.4-8.2)
[2016-05-31] MEDS: SODIUM CHLORIDE 0.9% 1,000 ML IV SCH ×2 (07:24→16:40)
[2016-05-31 07:28] LABS: DEFINITIVE VIEW TRANSMISSION; Mean Corpuscular Hemoglobin 29.8 pg (28.0-32.0); Mean Corpuscular Hgb Conc. 32.3 g/dL (32.0-36.0); Mean Corpuscular Volume 92.2 fL (80.0-100.0); Mean Platelet Volume 8.1 fL (7.4-10.4); Platelet Count (auto) 411 10^3/uL (140-450); Red Cell Distribution Width 15.4 % (11.6-16.0); SUSPECT VIEW TRANSMISSION
[2016-05-31 07:47] LABS: White Blood Cell 63.4 10^3/uL (4.4-10.8)
[2016-05-31 07:48] LABS: Promyelocytes % 0; Reactive Lymphocytes 0
[2016-05-31 08:00] VITALS: BP 85/42
[2016-05-31] MEDS: BOOST PLUS 8 ounce PO SCH ×3 (08:00→18:00)
[2016-05-31] MEDS: IPRATROPIUM BROM 0.5 MG/2.5ML INH SOL NEB SCH ×3 (08:23→22:21)
[2016-05-31 08:58] LABS: Giant Platelets Few; Metamyelocytes % 2; Myelocytes % 2; Platelet Estimate Adequate
[2016-05-31 08:59] LABS: Burr Cells FEW; Ovalocytes FEW; Polychromasia Slight
[2016-05-31 09:00] VITALS: BP 85/42
[2016-05-31] MEDS ORDERED: AMINO ACID INFUSION IN D10W 1,000 ML IV NR (09:00)
[2016-05-31] MEDS: FLUCONAZOLE 200MG/100ML 100 ML IV SCH (10:00)
[2016-05-31] MEDS: DOCUSATE SOD 100 MG CAP PO SCH ×2 (10:00→22:00)
[2016-05-31] MEDS: AMIODARONE HCL 200 MG TAB PO SCH ×2 (10:00→22:00)
[2016-05-31] MEDS: LINEZOLID 600MG/300ML 300 ML IV SCH ×2 (10:49→21:41)
[2016-05-31] MEDS: MEROPENEM 1GM IVPB 100 ML IV SCH ×2 (14:49→23:00)
[2016-05-31 17:00] VITALS: BP 60/33
[2016-05-31] MEDS ORDERED: TPN PER PHARMACY IV NR ×9 (20:00)
[2016-05-31] MEDS ORDERED: HALOPERIDOL LACTATE 5 MG/ML INJ VIAL IV PRN (20:30)
[2016-05-31 21:22] VITALS: BP 60/33
[2016-05-31 22:16] VITALS: BP 96/49
[2016-05-31] MEDS: ENOXAPARIN SOD 60 MG/0.6 ML SYRINGE SC SCH (22:35)
[2016-06-01] MEDS: SODIUM CHLORIDE 0.9% 1,000 ML IV SCH ×3 (01:56→18:20)
[2016-06-01] MEDS: VANCOMYCIN HCL 125MG/5ML ORAL SOL GT SCH ×4 (04:46→18:00)
[2016-06-01] MEDS: InsuLIN REG 1unit/0.01ml Soln (100units/ml) SC SCH ×4 (06:00→18:00)
[2016-06-01 06:20] VITALS: BP 94/52
[2016-06-01] MEDS: ACCU-CHEK COMFORT CURVE STRIP VI SCH ×4 (06:21→18:19)
[2016-06-01 06:37] LABS: Albumin 1.7 g/dL (3.4-5.0); Calcium 6.2 mg/dL (8.5-10.1); Magnesium 2.1 mg/dL (1.6-2.6); Potassium 4.8 mmol/L (3.5-5.1)
[2016-06-01 06:39] LABS: BUN/Creatinine Ratio 17.5
[2016-06-01 06:43] LABS: Bilirubin, Total 0.3 mg/dL (0.2-1.0); Phosphorus 5.1 mg/dL (2.5-4.90); Total Protein 5.6 g/dL (6.4-8.2)
[2016-06-01] MEDS: IPRATROPIUM BROM 0.5 MG/2.5ML INH SOL NEB SCH ×3 (07:11→23:03)
[2016-06-01] MEDS: BOOST PLUS 8 ounce PO SCH ×3 (08:00→18:00)
[2016-06-01 09:00] VITALS: BP 116/49
[2016-06-01] MEDS: LINEZOLID 600MG/300ML 300 ML IV SCH ×2 (09:21→20:53)
[2016-06-01] MEDS: MEROPENEM 1GM IVPB 100 ML IV SCH ×2 (11:43→23:05)
[2016-06-01] MEDS: AMIODARONE HCL 200 MG TAB PO SCH ×2 (11:43→21:48)
[2016-06-01] MEDS: DOCUSATE SOD 100 MG CAP PO SCH ×2 (11:43→21:48)
[2016-06-01 13:00] VITALS: BP 116/53
[2016-06-01] MEDS ORDERED: HALOPERIDOL LACTATE 5 MG/ML INJ VIAL IM PRN (16:00)
[2016-06-01 17:00] VITALS: BP 118/58
[2016-06-01] MEDS ORDERED: TPN PER PHARMACY IV NR ×9 (20:00)
[2016-06-01] MEDS: ENOXAPARIN SOD 60 MG/0.6 ML SYRINGE SC SCH (21:49)
[2016-06-01 21:59] VITALS: BP 116/57
[2016-06-02 05:00] VITALS: BP 110/58
[2016-06-02] MEDS: VANCOMYCIN HCL 125MG/5ML ORAL SOL GT SCH ×3 (06:00→12:00)
[2016-06-02] MEDS: InsuLIN REG 1unit/0.01ml Soln (100units/ml) SC SCH ×3 (06:00→12:00)
[2016-06-02] MEDS: ACCU-CHEK COMFORT CURVE STRIP VI SCH ×3 (06:00→12:17)
[2016-06-02 06:17] LABS: Albumin 1.7 g/dL (3.4-5.0); Bilirubin, Total 0.2 mg/dL (0.2-1.0); Calcium 7.2 mg/dL (8.5-10.1); Magnesium 2.1 mg/dL (1.6-2.6); Phosphorus 4.7 mg/dL (2.5-4.90); Potassium 4.3 mmol/L (3.5-5.1); Total Protein 5.5 g/dL (6.4-8.2)
[2016-06-02] MEDS: IPRATROPIUM BROM 0.5 MG/2.5ML INH SOL NEB SCH (07:02)
[2016-06-02] MEDS: BOOST PLUS 8 ounce PO SCH ×2 (08:00→12:00)
[2016-06-02] MEDS: SODIUM CHLORIDE 0.9% 1,000 ML IV SCH (08:00)
[2016-06-02] MEDS: LINEZOLID 600MG/300ML 300 ML IV SCH (09:17)
[2016-06-02] MEDS: AMIODARONE HCL 200 MG TAB PO SCH (10:00)
[2016-06-02] MEDS: DOCUSATE SOD 100 MG CAP PO SCH (10:00)
[2016-06-02 13:41] VITALS: BP 115/50
== END 2016-06-02 15:15 | disposition hospice, home (50) | DRG 871 ==
LOC: EDBD 12:45 → ER 12:47 → TELE 12:48 → ICU WEST 17:40 → TELE-CENTR 05-21 09:45
PROVIDERS: ADMIT Internal Medicine Cardiovascular Disease; ATTEND Internal Medicine Cardiovascular Disease
PROC: 5A1935Z Respiratory Ventilation, Less than 24 Consecutive Hours (ICD-10-PCS; principal; 2016-05-19)
PROC: 0BH17EZ Insertion of Endotracheal Airway into Trachea, Via Natural or Artificial Opening (ICD-10-PCS; 2016-05-19)
PROC: 5A09557 Assistance with Respiratory Ventilation, Greater than 96 Consecutive Hours, Continuous Positive Airway Pressure (ICD-10-PCS; 2016-05-19)
PROC: 30233N1 Transfusion of Nonautologous Red Blood Cells into Peripheral Vein, Percutaneous Approach (ICD-10-PCS; 2016-05-19)
DX: A41.9 Sepsis, unspecified organism (principal); G93.41 Metabolic encephalopathy; N18.6 End stage renal disease; J96.01 Acute respiratory failure with hypoxia; D68.59 Other primary thrombophilia; A04.7 Enterocolitis due to Clostridium difficile; E46 Unspecified protein-calorie malnutrition; I13.2 Hypertensive heart and chronic kidney disease with heart failure and with stage 5 chronic kidney disease, or end stage renal disease; G47.30 Sleep apnea, unspecified; I48.0 Paroxysmal atrial fibrillation; I50.9 Heart failure, unspecified; M19.012 Primary osteoarthritis, left shoulder; E66.9 Obesity, unspecified; F45.8 Other somatoform disorders; J44.9 Chronic obstructive pulmonary disease, unspecified; J61 Pneumoconiosis due to asbestos and other mineral fibers; Z51.5 Encounter for palliative care; I25.10 Atherosclerotic heart disease of native coronary artery without angina pectoris; Z84.89 Family history of other specified conditions; Z80.3 Family history of malignant neoplasm of breast; Z86.14 Personal history of Methicillin resistant Staphylococcus aureus infection; Z95.0 Presence of cardiac pacemaker; Z80.8 Family history of malignant neoplasm of other organs or systems; Z82.49 Family history of ischemic heart disease and other diseases of the circulatory system; Z88.6 Allergy status to analgesic agent; Z88.1 Allergy status to other antibiotic agents; Z88.5 Allergy status to narcotic agent; Z88.0 Allergy status to penicillin; Z88.8 Allergy status to other drugs, medicaments and biological substances; Z79.01 Long term (current) use of anticoagulants; Z79.899 Other long term (current) drug therapy; Z79.4 Long term (current) use of insulin
CPT/HCPCS: 31500; 36415; 36600; 71010; 73030; 80048; 80053; 80202; 81001; 82040; 82805; 82962; 83605; 83735; 83880; 84100; 84478; 84484; 85007; 85025; 85027; 85610; 85730; 86850; 86860; 86870; 86880; 86900; 86901; 86905; 86906; 86920; 86970; 86971; 87040; 87077; 87081; 87086; 87186; 93005; 93971; 94003; 94640; 94660; 96374; 96375; 97001; 97110; 97530; 99291; J1071; J1450; J1642; J1815; J1885; J2185; J2543; J2704; J3490; J7060; J7131